=== PATIENT | male | born 1935 | race Caucasian/White ===

== ENCOUNTER 2016-11-23 16:37 | Inpatient (IN) | payer OTHER, BC ==
[~2016-11-23] VITALS: Ht 177.8 cm; Wt 61.1 kg
[~2016-11-23 16:37] MED LIST: ADVAIR 250/501 DISK IH; ADVIL,NUPRIN,M200 MG PO; ALENDRONATE SOD70 MG PO; ALER-CAP25 M1 PO; ASPERDRINK81 MG PO; Ascorbic Acid,Ester- PO; CARDIZEM LA300 MG PO; CENTRUM MEN'S1 EACH PO; Combivent IH; DUONEB 2.5-0.5 M3 ML AEROSOL; DYAZIDE, MA1 CAPSULE PO; FLOVENT 22120 INHALA IH; GABAPENTIN300 MG PO; Hytrin PO; KLONOPIN0.5 M1 PO; KRISTALOSE10 GM PO; METANX CAPSULE1 EACH PO; MUCINEX600 MG PO; NORVASC10 MG PO; OS-CAL 500+D T1 EAC1 PO; Osteo-Biflex,Flex-A- PO; PRAVACHOL20 MG PO; PREDNISONE50 MG PO; Pradaxa PO; RESTORIL30 MG PO; SINGULAIR10 MG PO; STIOLTO RESPIMAT4 GM IH; TAZTIA XT240 M1 PO; TAZTIA XT300 M1 PO; THEO-24300 MG PO; THEO-DUR,THEOC300 MG PO; VENTOLIN HFA18 GM IH
[2016-11-23 19:17] LABS: HEMATOCRIT 38.6 % (38.0-50.0); MCHC 33.2 G/DL (30.0-36.0); MCV 90.6 FL (86-99); MEAN PLAT.VOLUME 9.1 uM^3 (9.0-12.4); PLATELET COUNT 228 K/uL (156-360); RBC DIS.WIDTH-CV 15.7 % (11.8-14.6); RBC DIS.WIDTH-SD 51.2 % (39-53); RED BLOOD COUNT 4.26 M/uL (4.00-5.50); WHITE BLOOD COUNT 6.5 K/uL (4.1-10.2)
[2016-11-23 19:28] LABS: D-DIMER ELISA < 0.15 mg/L FEU (< 0.57); INTER. NORMALIZED RATIO 1.6; PROTHROMBIN TIME 16.2 (9.2-11.2); PTT 45.7 (25-32)
[2016-11-23 19:39] LABS: CHLORIDE 103 mEq/L (99-109); SODIUM 140 mEq/L (136-147)
[2016-11-23 19:41] LABS: GLUCOSE 99 mg/dL (70-99)
[2016-11-23 19:42] LABS: ANION GAP 7 MEQ/L (2-14)
[2016-11-23 19:43] LABS: TOTAL BILIRUBIN 0.6 mg/dL (0.0-1.0)
[2016-11-23 19:44] LABS: ALKALINE PHOSPHATASE 55 IU/L (3-129)
[2016-11-23 19:45] LABS: GFR ESTIMATE (CALCULATED) 56 mL/min/
[2016-11-23 19:46] LABS: UREA NITROGEN (BUN) 22 mg/dL (9-23)
[2016-11-23 19:48] LABS: LIPASE 19 U/L (1.0-51.0)
[2016-11-23 19:55] LABS: TROP-I INTERPRETATION NEGATIVE; TROPONIN-I 0.03 ng/mL (0.0-0.30)
[2016-11-23] MEDS ORDERED: FOSAMAX70 MG PO (21:13)
[2016-11-23] MEDS ORDERED: LASIX20 MG PO (21:15)
[2016-11-23] MEDS ORDERED: DALIRESP500 MCG PO (21:15)
[2016-11-23] MEDS ORDERED: DUONEB 2.5-0.5 M3 ML AEROSOL (21:16)
[2016-11-23] MEDS ORDERED: DOXYCYCLINE HY100 M3 PO (21:17)
[2016-11-23] MEDS ORDERED: PRADAXA150 MG PO (21:17)
[2016-11-23] MEDS ORDERED: HYTRIN2 MG PO (21:18)
[2016-11-23] MEDS ORDERED: C COMPLEX500 MG PO (21:18)
[2016-11-23] MEDS ORDERED: GLUCOSAMINE-CH1 EA45 PO (21:19)
[2016-11-23] MEDS ORDERED: PROBIOTIC1 EAC1 PO (21:19)
[2016-11-23] MEDS ORDERED: TYLENOL ARTHRI650 MG PO (21:20)
[2016-11-24] VITALS (7 sets, daily range): BP systolic 87–138; BP diastolic 57–90
[2016-11-24] MEDS ORDERED: THEO-DUR,THEOC300 MG PO (01:45)
[2016-11-24 06:57] LABS: HEMATOCRIT 36.8 % (38.0-50.0); MCH 29.9 PG (29.0-34.0); MCHC 33.2 G/DL (30.0-36.0); MCV 90.2 FL (86-99); MEAN PLAT.VOLUME 9.4 uM^3 (9.0-12.4); PLATELET COUNT 200 K/uL (156-360); RBC DIS.WIDTH-CV 15.7 % (11.8-14.6); RBC DIS.WIDTH-SD 52.1 % (39-53); RED BLOOD COUNT 4.08 M/uL (4.00-5.50); WHITE BLOOD COUNT 3.3 K/uL (4.1-10.2)
[2016-11-24 07:13] LABS: ANION GAP 5 MEQ/L (2-14); CHLORIDE 105 MEQ/L (99-109); GFR ESTIMATE (CALCULATED) > 59 mL/min/; GLUCOSE 130 mg/dL (70-99); POTASSIUM 4.6 MEQ/L (3.7-5.4); SAMPLE HEMOLYSIS CHECK 0; SAMPLE ICTERIC CHECK 0; SAMPLE LIPEMIA CHECK 0; SODIUM 142 MEQ/L (136-147); UREA NITROGEN (BUN) 23 mg/dL (9-23)
[2016-11-24 12:10] LABS: BASE EXCESS 1.9 mEq/L (-3 to +3); BICARBONATE 26.6 mEq/L (22-26); CARBOXY HGB 2.3 % (0-5); COMMENTS - BLOOD GASES A+C+; DEVICE NC; METHEMOGLOBIN 1.4 % (0-1.5); O2 FLOW 2 L/MIN; PCO2 41 mm Hg (35-45); PO2 79 mm Hg (80-100); SITE LR; pH 7.42 (7.35-7.45)
[2016-11-24 12:24] LABS: TROP-I INTERPRETATION NEGATIVE; TROPONIN-I 0.01 ng/mL (0.0-0.30)
[2016-11-24 14:40] LABS: THEOPHYLLINE 10.3 MCG/ML (10-20)
[2016-11-25 04:27] VITALS: BP 113/71
[2016-11-25 06:14] LABS: MCHC 33.5 G/DL (30.0-36.0); MCV 89.5 FL (86-99); MEAN PLAT.VOLUME 9.5 uM^3 (9.0-12.4); PLATELET COUNT 198 K/uL (156-360); RBC DIS.WIDTH-CV 15.8 % (11.8-14.6); RBC DIS.WIDTH-SD 51.3 % (39-53)
[2016-11-25 06:16] LABS: WHITE BLOOD COUNT 8.9 K/uL (4.1-10.2)
[2016-11-25 08:30] VITALS: BP 106/70
[2016-11-25] MEDS ORDERED: LOPRESSOR25 MG PO (11:28)
[2016-11-25] MEDS ORDERED: GABAPENTIN300 MG PO (11:28)
[2016-11-25] MEDS ORDERED: FLORASTOR250 MG PO (11:28)
[2016-11-25] MEDS ORDERED: PREDNISONE10 MG PO (11:28)
[2016-11-25] MEDS ORDERED: CEFDINIR300 MG PO (11:29)
[2016-11-25 12:44] VITALS: BP 116/81
== END 2016-11-25 14:13 | disposition home or self-care (01) | DRG 190 ==
LOC: EME 16:37 → EDOF 21:58 → 5WEST 23:18
PROVIDERS: Family Medicine; Internal Medicine Pulmonary Disease; Nurse Practitioner Adult Health; Nurse Practitioner Family
DX: J44.1 Chronic obstructive pulmonary disease with (acute) exacerbation (principal); J96.21 Acute and chronic respiratory failure with hypoxia; I48.2 Chronic atrial fibrillation; I10 Essential (primary) hypertension; E78.5 Hyperlipidemia, unspecified; M81.0 Age-related osteoporosis without current pathological fracture; F41.9 Anxiety disorder, unspecified; N40.0 Benign prostatic hyperplasia without lower urinary tract symptoms; Z99.81 Dependence on supplemental oxygen; Z79.01 Long term (current) use of anticoagulants; Z87.891 Personal history of nicotine dependence; Z88.0 Allergy status to penicillin; Z88.5 Allergy status to narcotic agent; Z79.82 Long term (current) use of aspirin
CPT/HCPCS: 36600; 71020; 71250; 80048; 80053; 80198; 82803; 83690; 83880; 84484; 85027; 85379; 85610; 85730; 93005; 93970; 94640; 94640 76; 94760; 94799; 99202; 99281; 99285; G0378; J0456; J0692; J1940; J2930; J7050; J7512

== ENCOUNTER 2017-01-22 15:07 | Inpatient (IN) | payer OTHER, BC ==
[~2017-01-22] VITALS: Ht 177.8 cm; Wt 64.2 kg
[~2017-01-22 15:07] MED LIST changes: +C COMPLEX500 MG PO; +CEFDINIR300 MG PO; +DALIRESP500 MCG PO; +DOXYCYCLINE HY100 M3 PO; +FLORASTOR250 MG PO; +FOSAMAX70 MG PO; +GLUCOSAMINE-CH1 EA45 PO; +HYTRIN2 MG PO; +LASIX20 MG PO; +LOPRESSOR25 MG PO; +PRADAXA150 MG PO; +PREDNISONE10 MG PO; +PROBIOTIC1 EAC1 PO; +TYLENOL ARTHRI650 MG PO
[2017-01-22 15:47] LABS: HEMATOCRIT 37.3 % (38.0-50.0); MCH 30.3 PG (29.0-34.0); MCHC 32.7 G/DL (30.0-36.0); MCV 92.8 FL (86-99); MEAN PLAT.VOLUME 8.8 uM^3 (9.0-12.4); PLATELET COUNT 242 K/uL (156-360); RBC DIS.WIDTH-SD 48.9 % (39-53); RED BLOOD COUNT 4.02 M/uL (4.00-5.50); WHITE BLOOD COUNT 9.2 K/uL (4.1-10.2)
[2017-01-22 16:00] LABS: CHLORIDE 106 mEq/L (99-109)
[2017-01-22 16:01] LABS: POTASSIUM 3.9 mEq/L (3.7-5.4); SODIUM 145 mEq/L (136-147)
[2017-01-22 16:02] LABS: GLUCOSE 91 mg/dL (70-99)
[2017-01-22 16:04] LABS: ANION GAP 9 MEQ/L (2-14)
[2017-01-22 16:06] LABS: GFR ESTIMATE (CALCULATED) > 59 mL/min/
[2017-01-22 16:07] LABS: UREA NITROGEN (BUN) 39 mg/dL (9-23)
[2017-01-22 16:12] LABS: TROP-I INTERPRETATION NEGATIVE; TROPONIN-I 0.04 ng/mL (0.0-0.30)
[2017-01-22 17:33] LABS: D-DIMER ELISA < 0.15 mg/L FEU (< 0.57)
[2017-01-22] MEDS ORDERED: ASPIR 8181 M1 PO (20:05)
[2017-01-22] MEDS ORDERED: MORPHINE SULFAT15 M1 PO (20:06)
[2017-01-22] MEDS ORDERED: SYMBICORT60 INHALAT IH (20:06)
[2017-01-22] MEDS ORDERED: COLACE100 MG PO (20:06)
[2017-01-22] MEDS ORDERED: PREDNISONE10 MG PO (20:11)
[2017-01-22 22:15] VITALS: BP 123/66
[2017-01-23 04:28] VITALS: BP 125/76
[2017-01-23 06:51] LABS: HEMATOCRIT 34.4 % (38.0-50.0); MCH 29.1 PG (29.0-34.0); MCHC 31.7 G/DL (30.0-36.0); MEAN PLAT.VOLUME 9.1 uM^3 (9.0-12.4); PLATELET COUNT 197 K/uL (156-360); RBC DIS.WIDTH-CV 15.1 % (11.8-14.6); RED BLOOD COUNT 3.74 M/uL (4.00-5.50)
[2017-01-23 06:52] LABS: WHITE BLOOD COUNT 6.3 K/uL (4.1-10.2)
[2017-01-23 07:24] LABS: ANION GAP 7 MEQ/L (2-14); CHLORIDE 104 MEQ/L (99-109); POTASSIUM 4.1 MEQ/L (3.7-5.4); SAMPLE HEMOLYSIS CHECK 0; SAMPLE ICTERIC CHECK 0; SAMPLE LIPEMIA CHECK 0; SODIUM 142 MEQ/L (136-147); TOTAL BILIRUBIN 0.7 MG/DL (0.0-1.0)
[2017-01-23 08:10] VITALS: BP 119/65
[2017-01-23 08:10] LABS: ALKALINE PHOSPHATASE 45 IU/L (3-129); GFR ESTIMATE (CALCULATED) > 59 mL/min/; GLUCOSE 139 mg/dL (70-99); UREA NITROGEN (BUN) 34 mg/dL (9-23)
[2017-01-23 11:58] VITALS: BP 101/66
[2017-01-23 15:06] VITALS: BP 116/56
[2017-01-23 19:42] VITALS: BP 116/84
[2017-01-23 23:56] VITALS: BP 104/71
[2017-01-24] VITALS (7 sets, daily range): BP systolic 104–141; BP diastolic 61–82
[2017-01-24 07:17] LABS: EOSINOPHIL (%) 0 % (0-5); HEMATOCRIT 35.2 % (38.0-50.0); IMMATURE GRANULOCYTE (%) 0.2 % (0.0-0.7); LYMPHOCYTE COUNT 0.6 K/uL (1.0-2.8); MCHC 31.8 G/DL (30.0-36.0); MCV 91.2 FL (86-99); MEAN PLAT.VOLUME 9.2 uM^3 (9.0-12.4); MONOCYTE (%) 7.5 % (3-12); MONOCYTE COUNT 0.8 K/uL (0-0.8); NEUTROPHIL (%) 86.9 % (45-76); NEUTROPHIL COUNT 9.7 K/uL (1.8-6.4); PLATELET COUNT 220 K/uL (156-360); RED BLOOD COUNT 3.86 M/uL (4.00-5.50); WHITE BLOOD COUNT 11.2 K/uL (4.1-10.2)
[2017-01-24 07:17] LABS: BASE EXCESS 5.3 mEq/L (-3 to +3); BICARBONATE 29.9 mEq/L (22-26); CARBOXY HGB 1.6 % (0-5); METHEMOGLOBIN 1.1 % (0-1.5); PCO2 43 mm Hg (35-45); PO2 80 mm Hg (80-100); SITE RR+A; pH 7.45 (7.35-7.45)
[2017-01-24 07:18] LABS: COMMENTS - BLOOD GASES +C; DEVICE NC; O2 FLOW 4 L/MIN; TOTAL RESP RATE 20 resp/min
[2017-01-24 07:21] LABS: ANION GAP 6 MEQ/L (2-14); CHLORIDE 102 MEQ/L (99-109); GFR ESTIMATE (CALCULATED) > 59 mL/min/; GLUCOSE 129 mg/dL (70-99); POTASSIUM 4.2 MEQ/L (3.7-5.4); SAMPLE HEMOLYSIS CHECK 0; SAMPLE ICTERIC CHECK 0; SAMPLE LIPEMIA CHECK 0; SODIUM 139 MEQ/L (136-147); UREA NITROGEN (BUN) 38 mg/dL (9-23)
[2017-01-25 00:30] VITALS: BP 112/60
[2017-01-25 05:06] VITALS: BP 119/78
[2017-01-25 07:32] LABS: EOSINOPHIL COUNT 0.1 K/uL (0-0.3); HEMATOCRIT 34.5 % (38.0-50.0); IMMATURE GRANULOCYTE (%) 0.1 % (0.0-0.7); LYMPHOCYTE COUNT 1.1 K/uL (1.0-2.8); MCH 30.2 PG (29.0-34.0); MCHC 32.5 G/DL (30.0-36.0); MEAN PLAT.VOLUME 9.4 uM^3 (9.0-12.4); NEUTROPHIL (%) 74.6 % (45-76); NEUTROPHIL COUNT 6.4 K/uL (1.8-6.4); PLATELET COUNT 208 K/uL (156-360); RBC DIS.WIDTH-CV 15.1 % (11.8-14.6); RBC DIS.WIDTH-SD 51.3 % (39-53); RED BLOOD COUNT 3.71 M/uL (4.00-5.50); WHITE BLOOD COUNT 8.6 K/uL (4.1-10.2)
[2017-01-25 08:00] VITALS: BP 121/65
[2017-01-25 08:22] LABS: ANION GAP 3 MEQ/L (2-14); CHLORIDE 104 MEQ/L (99-109); GFR ESTIMATE (CALCULATED) > 59 mL/min/; POTASSIUM 4.2 MEQ/L (3.7-5.4); SAMPLE HEMOLYSIS CHECK 0; SAMPLE ICTERIC CHECK 0; SAMPLE LIPEMIA CHECK 0; SODIUM 143 MEQ/L (136-147); UREA NITROGEN (BUN) 36 mg/dL (9-23)
[2017-01-25 09:06] LABS: GLUCOSE 94 mg/dL (70-99)
[2017-01-25 11:10] VITALS: BP 109/72
[2017-01-25] MEDS ORDERED: LOPRESSOR50 MG PO (14:20)
[2017-01-25] MEDS ORDERED: PREDNISONE10 MG PO (14:22)
[2017-01-25] MEDS ORDERED: FAMOTIDINE20 MG PO (14:23)
== END 2017-01-25 17:21 | disposition hospice, home (50) | DRG 191 ==
LOC: EME → EDBD 15:07 → EME 15:07 → EDOF 19:44 → 4EAST 19:44
PROVIDERS: Internal Medicine; Internal Medicine Pulmonary Disease
DX: J44.1 Chronic obstructive pulmonary disease with (acute) exacerbation (principal); J96.10 Chronic respiratory failure, unspecified whether with hypoxia or hypercapnia; I48.2 Chronic atrial fibrillation; I27.2 Other secondary pulmonary hypertension; Z99.81 Dependence on supplemental oxygen; S91.301A Unspecified open wound, right foot, initial encounter; N18.3 Chronic kidney disease, stage 3 (moderate); I12.9 Hypertensive chronic kidney disease with stage 1 through stage 4 chronic kidney disease, or unspecified chronic kidney disease; F41.9 Anxiety disorder, unspecified; M81.0 Age-related osteoporosis without current pathological fracture; E78.5 Hyperlipidemia, unspecified; I89.0 Lymphedema, not elsewhere classified; F32.9 Major depressive disorder, single episode, unspecified; M19.90 Unspecified osteoarthritis, unspecified site; Z87.891 Personal history of nicotine dependence
CPT/HCPCS: 36600; 71020; 80048; 80053; 80198; 82803; 84484; 85025; 85027; 85379; 87070; 87075; 87077; 87186; 87205; 93005; 94640; 94640 76; 94799; 99202; 99281; 99285; J0696; J1100; J2930; J3370; J7050; J7512; S0028

== ENCOUNTER 2017-10-30 16:20 | Emergency (ER) | payer OTHER, BC ==
[~2017-10-30] VITALS: Ht 172.7 cm; Wt 49.2 kg
[~2017-10-30 16:20] MED LIST changes: +ASPIR 8181 M1 PO; +COLACE100 MG PO; +FAMOTIDINE20 MG PO; +LOPRESSOR50 MG PO; +MORPHINE SULFAT15 M1 PO; +SYMBICORT60 INHALAT IH
[2017-10-31 00:17] VITALS: BP 116/61
== END 2017-10-31 00:19 | disposition hospice, home (50) ==
LOC: EME 16:20
DX: J44.9 Chronic obstructive pulmonary disease, unspecified (principal); F03.90 Unspecified dementia, unspecified severity, without behavioral disturbance, psychotic disturbance, mood disturbance, and anxiety; I10 Essential (primary) hypertension; E78.5 Hyperlipidemia, unspecified; Z66 Do not resuscitate; Z99.81 Dependence on supplemental oxygen; Z87.891 Personal history of nicotine dependence
CPT/HCPCS: 93005; 99281; 99285; J1200; J1630; J2060